=== PATIENT | male | born 2000 | race Caucasian/White ===

== ENCOUNTER 2022-09-21 16:43 | Emergency (ER) | payer OTHER ==
[~2022-09-21] VITALS: Ht 180.3 cm; Wt 113.4 kg
[2022-09-21] MEDS ORDERED: AMOXICILLIN500 M2 PO (19:25)
[2022-09-21] MEDS ORDERED: FLONASE ALLERG9.9 ML NAS (19:25)
[2022-09-21] MEDS ORDERED: SEPTDS PO (19:25)
== END 2022-09-21 19:33 | disposition home or self-care (01) ==
LOC: ED 16:43
DX: J32.9 Chronic sinusitis, unspecified (principal); Z20.822 Contact with and (suspected) exposure to COVID-19; J02.9 Acute pharyngitis, unspecified; H92.09 Otalgia, unspecified ear

== ENCOUNTER 2025-10-01 19:30 | Emergency (ER) | payer OTHER, BC ==
[~2025-10-01] VITALS: Ht 165.1 cm; Wt 113.4 kg
[~2025-10-01 19:30] MED LIST: AMOXICILLIN500 M2 PO; FLONASE ALLERG9.9 ML NAS; SEPTDS PO
[2025-10-01] MEDS ORDERED: Bacitracin Zinc 14 GM TUBE T ONE (19:45)
[2025-10-01] MEDS ORDERED: Tdap Vaccine 0.5 ML SYR (Adult Vaccine) IM ONE (19:45)
[2025-10-01] MEDS ORDERED: ANTIBIOTIC28.4 GM T (19:55)
== END 2025-10-01 20:24 | disposition home or self-care (01) ==
LOC: ED 19:30
DX: T23.212A Burn of second degree of left thumb (nail), initial encounter (principal); T31.0 Burns involving less than 10% of body surface; X08.8XXA Exposure to other specified smoke, fire and flames, initial encounter; Y93.89 Activity, other specified; Y92.89 Other specified places as the place of occurrence of the external cause; Y99.8 Other external cause status